=== PATIENT | female | born 1990 | race Two or more races ===

== ENCOUNTER 2024-12-18 19:51 | Emergency (ER) | payer BC, SELFPAY ==
--- NOTE | 2024-12-18 | ECG_ITS ---
Test Reason : LOC Blood Pressure : */* mmHG Vent. Rate : 87 BPM Atrial Rate : 87 BPM P-R Int : 152 ms QRS Dur : 110 ms QT Int : 368 ms P-R-T Axes : 73 38 46 degrees QTcB Int : 442 ms Normal sinus rhythm Incomplete right bundle branch block Borderline ECG No previous ECGs available Referred By: Generic ED Physician Electronically Signed By: SUE CRUZ
--- NOTE | ~2024-12-18 | CT_ITS ---
CLINICAL HISTORY: facial trauma, syncope CT FACIAL BONES WITHOUT CONTRAST COMPARISON: None provided. FINDINGS: CT brain will be reported separately. There is no evidence of an acute fracture or dislocation. Orbits, nasal bones, zygomatic arches, pterygoid plates, maxilla, and mandible are intact. IMPRESSION: 1. No acute disease in the facial bones. This document has been electronically signed by: Rito Posada M.D. on 12/18/2024 23:50:22
--- NOTE | ~2024-12-18 | CT_ITS ---
CLINICAL HISTORY: syncope, facial trauma CT BRAIN WITHOUT CONTRAST COMPARISON: None provided. FINDINGS: CT facial bones will be reported separately. There is no evidence of an acute infarct or intraparenchymal hemorrhage. There is no mass effect, midline shift, or extra-axial blood. The ventricles are normal in size without evidence of hydrocephalus. The bone windows are unremarkable. IMPRESSION: 1. No acute disease in the brain. This document has been electronically signed by: Rito Posada M.D. on 12/18/2024 23:46:27
[2024-12-18 19:55] VITALS: BP 112/65; PULSE 96; RESP 16; TEMP 36.2; O2SAT 100; BMI 19.1
[2024-12-18 20:22] LABS: MANUAL DIFF FLAG NO
[2024-12-18 20:24] VITALS: BP 108/81; PULSE 88; RESP 17; TEMP 36.4; O2SAT 100
[2024-12-18 20:30] LABS: Hematocrit 38.7 % (37.0-47.0); Hemoglobin 13.2 g/dl (12.0-16.0); Imm Gran Abs Auto 0.04 X10*3/uL (0.00-0.03); Imm Gran Pct Auto 0.4 % (0.0-0.4); Lymphocytes Absolute Auto 2.0 X10*3/uL (1.2-4.9); Mean Corpuscular HGB Conc 34.1 g/dl (31.0-35.0); Mean Corpuscular Hemoglobin 27.4 pg (27.0-33.0); Mean Corpuscular Volume 80.3 fL (80.0-98.0); NRBC Abs Auto 0.000 X10*3/uL (0.0-0.012); NRBC Pct Auto 0.0 /100WBC (0.0-0.2); Platelet Count 285 X10*3/uL (160-400); Red Blood Count 4.82 X10*6/uL (4.20-5.50); White Blood Count 11.4 X10*3/uL (4.8-10.8)
[2024-12-18 20:38] LABS: INTERNATIONAL NORM RATIO 1.0 (0.9-1.1); Prothrombin Time 11.7 SEC (10.9-12.4)
[2024-12-18 20:39] LABS: Alanine Aminotransferase 35 U/L (0-31); Albumin Level 4.8 g/dL (3.5-5.0); Alkaline Phosphatase 90 U/L (39-117); Anion Gap 11 (12-20); Aspartate Amino Transferase 36 U/L (5-31); Blood Urea Nitrogen 11 mg/dL (9-16); Calcium 9.5 mg/dL (8.4-10.2); Carbon Dioxide 25 mmol/L (22-29); Chloride 106 mmol/L (96-108); Creatinine Clr Calc Pharmacy 88.9; Estimated Glomerular Filt Rate > 60; Lipase 28 U/L (8-78); Potassium 4.2 mmol/L (3.3-5.1); Sodium 138 mmol/L (135-145); Total Protein 8.1 g/dL (6.5-8.0)
[2024-12-18 20:48] LABS: Troponin-I High Sensitivity < 2.7 ng/L (<3.5-17.0)
[2024-12-18 20:56] VITALS: BP 117/73; PULSE 82
[2024-12-18 20:57] VITALS: BP 109/70; PULSE 88
[2024-12-18 20:58] VITALS: BP 115/70; PULSE 92
--- NOTE | 2024-12-18 21:27 | ED_ITS ---
[facility] - Fall General Chief Complaint: Fall Stated Complaint: fainted/ foaming of the mouth / LOC 10 mins Time Seen by Provider: 12/18/24 21:06 Source: patient and family Limitations: no limitations History of Present Illness ED Provider: Dr. Aylin Bose [facility] Narrative: 44-year-old female with a history of mild intermittent asthma,, anxiety, hypoglycemic episodes presenting after a syncopal episode that occurred at home immediately prior to arrival. Patient reports she was out on her balcony vaping nicotine and came inside the house, passing out. Event was witnessed by her who is now at bedside. reports that she was shaking with all of her limbs and foaming at the mouth. She also had a bloody nose which has since stopped bleeding. Reports she hit her face on the ground. Was out for about 10 minutes. Patient is currently conscious alert and oriented, able to provide a full history. Reports that she has a history of low blood sugar and had not had much to eat today. Blood sugar for on arrival to the ED was 120. Denies stimulant use, illicit substance use. By his all of her vape supplies at the package store. Last use of alcohol was yesterday. She does not have a history of alcohol withdrawal. Had been feeling relatively well prior to this. Does admit to some anxiety and depression that is poorly controlled. No SI. Related Data Previous Rx's ?Medication ?Instructions ?Recorded methocarbamol 500 mg tablet 1,000 mg (2 x 500 mg) PO Q ID #20 12/19/24 tabs ondansetron 4 mg disintegrating 4 mg PO Q8H PRN nausea and 12/19/24 tablet vomiting #10 tabs Allergies Allergy/AdvReac Type Severity Reaction Status Date / Time Penicillins Allergy Unknown Unknown Verified 12/18/24 20:01 Review of Systems 2 Review of Systems: As per HPI, full review of systems performed and negative but for the above mentioned pertinent positives and negatives. [facility] Social History Social History Smoked in Last 30 Days: Yes Use of substances other than those prescribed or required for medical reasons: No Advance Directives: No Advance Directives Information Provided: No Patient : No Physical Exam 2 Exam: Exam: GENERAL: Uncomfortable-Appearing, conversant, mild distress due to pain. SKIN: Normal skin color for ethnicity, warm, dry, intact, no rashes noted. HEENT: Normocephalic, atraumatic, no stridor, airway patent, no raccoon's eyes, no Champagne sign, dentition intact, EOMI, tenderness along the chin and nasal bone, dried blood in bilateral nares, no step-offs. NECK: Soft, supple, full ROM, midline structures nontender, no step-offs, no deformities, no lymphadenopathy. CHEST: Heart regular rate and rhythm, no murmurs, symmetric chest rise and fall, no seatbelt sign, crepitus. PULMONARY: Clear to auscultation bilaterally, no labored breathing, no wheezes/rhales/rhonchi. ABDOMINAL: Soft, nondistended, nontender, quiet bowel sounds in all quadrants. : Deferred. MUSCULOSKELETAL: Normal tone, full range of motion, no deformities, no contusions. NEURO: Alert and oriented x3, CN II through XII intact, equal strength and sensation bilateral upper and lower extremities, no focal neurologic deficits. PSYCHIATRIC: Flat affect, fluid speech, poor eye contact and appropriate demeanor. Vital Signs: Vital Signs: Last Vital Signs Temp 97.5 F 12/18/24 20:24 Pulse 92 12/18/24 20:58 Resp 17 12/18/24 20:24 BP 115/70 12/18/24 20:58 Pulse Ox 100 12/18/24 20:24 O2 Del Method Room Air 12/18/24 20:24 BMI result Body Mass Index 19.1 Medications Administered Discontinued Medications Generic Name Dose Route Start Last Admin Trade Name Freq PRN Reason Stop Dose Admin Acetaminophen 975 mg 12/18/24 21:25 12/18/24 22:09 Acetaminophen 325 Mg Tablet PO 12/18/24 21:26 975 mg ONCE ONE Administration Medical Decision Making Medical Decision Making MDM Narrative: Patient presents today with chief complaint of seizure activity. Differential diagnosis includes breakthrough seizure, medication noncompliance, intracranial pathology such as hemorrhage or embolism, infectious process such as meningitis, stimulant use or drug toxicity, hyperthyroidism, electrolyte abnormality, nonepileptic seizure activity (psychogenic seizure activity), among many others. Broad-based workup initiated to evaluate for emergent pathology. 9:39 PM 12/18/2024 (Dr. Aylin Bose, D.O.) Patient has facial trauma so we will evaluate with a head CT and facial bone CT. She does not have midline neck pain, using [place] C-spine rule we will hold off on C-spine imaging at this time. Blood work so far reassuring. Patient remains hemodynamically stable, able to tolerate oral intake. Encouraged eating some protein and drinking some fluids. Awaiting CT results and final disposition. 12:07 AM 12/19/2024 (Dr. Aylin Bose, D.O.) CT negative for acute process. Blood work is also reassuring. No significant abnormalities aside from slight dehydration with hyaline casts in her urine. Discussed importance of fluids, eating regular meals and follow up with primary care to discuss this syncopal episode. Very highly doubt seizure activity based on her blood work and physical exam today. She has no history of seizure disorder and takes no medications. Reports problems with low blood sugar and near-syncope in the past. She has been worked up by her primary care and has even seen an artificial fly tier about it. She understands and agrees with plan for discharge home. Discharged in stable condition. Differential Diagnosis Differential Diagnoses: The differential diagnosis associated with the presentation includes (as above) Admission/Observation Consideration of admission/observation: Escalation of care including admission/observation considered Lab Data MDM Lab Attestation statement: I reviewed the patient's lab results. 12/18/24 20:17 12/18/24 20:17 Labs: Lab Results 12/18/24 12/18/24 Range/Units 20:17 21:28 WBC 11.4 H (4.8-10.8) X10*3/uL RBC 4.82 (4.20-5.50) X10*6/uL Hgb 13.2 (12.0-16.0) g/dl Hct 38.7 (37.0-47.0) % MCV 80.3 (80.0-98.0) fL MCH 27.4 (27.0-33.0) pg MCHC 34.1 (31.0-35.0) g/dl RDW 13.5 (11.0-16.0) % Plt Count 285 (160-400) X10*3/uL MPV 10.4 (9.4-12.3) fL Immature Gran % (Auto) 0.4 (0.0-0.4) % Neut % (Auto) 70.8 (45-73) % Lymph % (Auto) 17.7 L (20-40) % Glades % (Auto) 6.8 (2-11) % Eos % (Auto) 3.8 (0-4) % Baso % (Auto) 0.5 (0-2) % Lymph # (Auto) 2.0 (1.2-4.9) X10*3/uL Glades # (Auto) 0.8 (0.1-1.2) X10*3/uL Eos # (Auto) 0.4 (0.0-0.4) X10*3/uL Baso # (Auto) 0.1 (0.0-0.2) X10*3/uL Abs Immat Gran (auto) 0.04 H (0.00-0.03) X10*3/uL Absolute Neuts (auto) 8.1 (2.0-8.3) x10*3/uL Absolute Nucleated RBC 0.000 (0.0-0.012) X10*3/uL Nucleated RBC % (auto) 0.0 (0.0-0.2) /100WBC PT 11.7 (10.9-12.4) SEC INR 1.0 (0.9-1.1) Sodium 138 (135-145) mmol/L Potassium 4.2 (3.3-5.1) mmol/L Chloride 106 (96-108) mmol/L Carbon Dioxide 25 (22-29) mmol/L Anion Gap 11 L (12-20) BUN 11 (9-16) mg/dL Creatinine 0.72 (0.5-1.4) mg/dL Estim Creat Clear Calc 88.9 Estimated GFR > 60 Random Glucose 165 H (60-115) mg/dL Calcium 9.5 (8.4-10.2) mg/dL Total Bilirubin 0.8 (0.0-1.0) mg/dL Direct Bilirubin 0.2 (0.0-0.5) mg/dL AST 36 H (5-31) U/L ALT 35 H (0-31) U/L Alkaline Phosphatase 90 (39-117) U/L Troponin I High Sens < 2.7 (<3.5-17.0) ng/L Total Protein 8.1 H (6.5-8.0) g/dL Albumin 4.8 (3.5-5.0) g/dL Lipase 28 (8-78) U/L Urine Color Yellow Urine Appearance Clear Urine pH 5.0 (5.0-9.0) Ur Specific [place] >= 1.030 H (1.005-1.025) Urine Protein 30 (1+) H (Neg-Trace) mg/dL Urine Glucose (UA) Negative (Negative) mg/dL Urine Ketones Trace (Negative) mg/dL Urine Blood Negative (Negative) Urine Nitrite Negative (Negative) Ur Leukocyte Esterase Negative (Negative) Urine RBC 0-2 (0-2) /HPF Urine WBC 6-10 H (0-5) /HPF Ur Squamous Epith Cells 6-10 (0-2) /HPF Urine Bacteria Trace (None Seen) Hyaline Casts 3-5 (0-2) /LPF Urine Opiates Screen Not Detected (Not Detect) Ur Buprenorphine Scrn Not Detected (Not Detect) ng/mL Ur Oxycodone Screen Not Detected (Not Detect) ng/mL Urine Methadone Screen Not Detected (Not Detect) ng/mL Urine Fentanyl Screen Not Detected (Not Detect) Ur Barbiturates Screen Not Detected (Not Detect) Ur Phencyclidine Scrn Not Detected (Not Detect) Ur Amphetamines Screen Not Detected (Not Detect) U Benzodiazepines Scrn Not Detected (Not Detect) Urine Cocaine Screen Not Detected (Not Detect) U Marijuana (THC) Screen Not Detected (Not Detect) Ethyl Alcohol < 10 mg/dL Independent Interpretation I performed an independent interpretation of an: EKG Interpretation: My independent interpretation of the ECG reveals normal sinus rhythm with rate of 87, normal axis, QRS 110, nonspecific interventricular conduction delay, no ST elevations or depressions to suggest ischemic changes, no previous for comparison Radiology Impression Discussion of test interpretation with radiology: I have reviewed the radiologist's reading. Independent Historian Clinical information obtained from an independent historian. History obtained from or confirmed by: Spouse Chronic Conditions Patient?s care impacted by: Other (hypoglycemic episodes) Discharge Plan Discharge Clinical Impression: Syncope, Contusion of face Patient Disposition: Home, Self-Care Instructions: Syncope (ED), Facial Contusion (ED) Additional Instructions: There are many reasons that could have contributed to your passing out tonight. One of them may be related to your food intake. Try to eat regular meals frequently and drink plenty of water. Follow-up with your primary care doctor regarding your episodes of passing out. If you pass out again, you should come back to the hospital. Other reasons to return to the hospital include: Fevers greater than 100?, severe headaches, inability to tolerate food or drink, numbness/tingling/weakness of 1 side of your body, any new symptom that concerns you. Try to avoid using nicotine in the next several days as this can also contribute to irregular heartbeats and passing out. Call 911 with any medical emergency. Be careful while using methocarbamol for muscle spasms as this can make you drowsy. Only take this if you are going to lay down and rest. Use ondansetron for nausea. Otherwise, use Tylenol and Motrin for pain. Prescriptions: New methocarbamol 500 mg tablet 1,000 mg PO QID Qty: 20 0RF ondansetron 4 mg tablet,disintegrating 4 mg PO Q8H PRN (Reason: nausea and vomiting) Qty: 10 0RF Print Language: Vietnamese
--- NOTE | 2024-12-18 21:31 | PC.NURSE ---
Patient alert and oriented x4, VSS. Patient c/o 4/10 pain in her chin, nose, and head s/p witnessed fall at home with + LOC, + head strike with nose bleed, foaming at the mouth, and trembling after smoking cigarettes/vaping. Patient reports history of hypoglycemia with body trembling . BGL 165 on arrival to ED. Orthostatic VS completed and found to be negative. Patient was seen by ED provider, plan for CT of cervical spine, head and brain, OK for patient to have chilango ruth and sandwich prior to CT. Patient given chilango ruth with sandwich. Call arias in patient's reach, patient's is at bedside.
--- OUTSIDE RECORDS SUMMARY | 2024-12-18 21:38 | XMS_ITS | Clinical Summary ---
Author Organization [facility] [address] [place] [address] [address] [place] [address] Phone Care Team Providers Care Hoop Riveter Name Role Phone Prasanth Mendoza MD Primary Care Pr ovider Allergies Active Allergy Reactions Criticality Noted Date Comments Penicillins 12/12/2022 Medications polyethylene glycol (MIRALAX) 17 gram packet Take 8.5 g by mouth daily as needed for Constipation for up to 90 days. 3 Active fluticasone (VERAMYST) 27.5 mcg/actuation nasal spray Administer 2 sprays into each nostril 1 (one) time each day. 10 g 5 08/19/19 26 Active fexofenadine (JALYN) 180 mg tablet Take 1 tablet (180 mg total) by mouth 1 (one) time each day. 90 tablet 5 Active montelukast (SINGULAIR) 10 mg tablet Take 1 tablet (10 mg total) by mouth at bedtime. 90 tablet 1 5 Active albuterol HFA (PROAIR HFA ; PROVENTIL HFA ; VENTOLIN HFA) 90 mcg/actuation inhalerIndicati ons:Wheezing Inhale 2 puffs by mouth every 4 (four) hours if needed for wheezing or shortness of breath (EMERGENCY USE ONLY). 6.7 g 5 Active Active Problems Problem Noted Date Diagnosed Date Chronic rhinitis 07/15/2023 Hyperlipidemia 12/13/2022 Anxiety and depression 12/12/2022 Immunizations Name Administration Dates Next Due Influenza Quadravalent, MDCK , 0.5ml, preservative free (Flucelvax) 6mo and older 12/12/2022,04/13/2021 Surgical History Surgery Date Site/Laterality Comments OTHER SURGICAL HISTORY PROCEDURE: DENIES PREVIOUS SURGERY Medical History Medical History Date Comments HLD (hyperlipidemia) DX:HLD (hyp erlipidemia) Family History Medical History Relation Name Comments Alzheimer's disease Maternal Grandmother Schizophrenia Maternal Grandmother Hypertension Mother Breast cancer Other maternal cousin Diabetes Paternal Grandfather Colon cancer Neg Hx Ovarian cancer Neg Hx Relation Name Status Comments Father Alive Maternal Grandfather Maternal Grandmother Alive Mother Alive Other maternal cousin Alive unsure age ( 50s) Paternal Grandfather Social History Tobacco Use Types Packs/Day Years Used Date Smoking Tobacco: Former Cigarettes Q uit: 12/30/2022 Smokeless Tobacco: Current Alcohol Use Standard Drinks/Week Comments Yes 0 (1 standard drink = 0.6 oz pur e alcohol) Comments Unknown Sex and Gender Information Value Date Recorded Sex Assigned at Not on file Legal Sex Female 9:09 PM EST Gender Identity Not on file Sexual Orientation Not on file Obstetrics History Last Filed Vital Signs Vital Sign Reading Time Taken Comments Blood Pressure 100/80 08/18/2024 11:17 AM EDT Pulse 89 08/18/2024 11:17 AM EDT Temperature 36.7 C (98.1 F) 08/18/2024 11:17 AM EDT Respiratory Rate 18 08/18/2024 11:17 AM EDT Oxygen Saturation 96% 08/18/2024 11:17 AM EDT Inhaled Oxygen Concentration - - Weight 54.9 kg (121 lb) 08/18/2024 11:17 AM EDT Height 165.1 cm (5' 5 ) 08/18/2024 11:17 AM EDT Body Mass Index 20.14 08/18/2024 11:17 AM EDT Plan of Treatment Upcoming Encounters Date Type Department Care Team (Late st Contact Info) Description 03/18/2025 8:00 AM EST Office Visit Adult Medicine [address] [id number] Prasanth Mendozae, MD [address] [place] [address] Health Maintenance Due Date Last Done Comments DTaP,Tdap,and Td Vaccines (1 - Tdap) 06/20/2007 Hepatitis B Vaccines (1 of 3 - 19+ 3-dose series) 06/20/2007 HIV Screening 04/26/2023 Hepatitis C Screening 04/26/2023 Social Influencers of Health Screening 04/26/2023 Depression Screening 04/01/2024 COVID-19 Vaccine (2 - 2024-2 6 season) 2024 04/13/2021 Influenza Vaccine (#1) 2024 , 04/13/2021 Cervical Cancer Screening: HPV 01/17/2028 01/16/2023 Cholesterol Screening (Lipid Panel) 06/17/2028 06/18/2023 HIB Vaccines Aged Out No longer eligi ble based on patient's age to complete this topic HPV Vaccines Aged Out No longer eligi ble based on patient's age to complete this topic Hepatitis A Vaccines Aged Out No long er eligible based on patient's age to complete this topic IPV Vaccines Aged Out No longer eligi ble based on patient's age to complete this topic MMR Vaccines Aged Out No longer eligi ble based on patient's age to complete this topic Meningococcal ACWY Vaccine Aged Out N o longer eligible based on patient's age to complete this topic Meningococcal B Vaccine Aged Out No l onger eligible based on patient's age to complete this topic Pneumococcal Vaccine: Pediatrics (0 to 5 Years) and At-Risk Patients (6 to 49 Years) Aged Out No longer eligible b ased on patient's age to complete this topic RSV Immunization Patients Under 20 months Aged Out No longer eligible b ased on patient's age to complete this topic Varicella Vaccines Aged Out No longer eligible based on patient's age to complete this topic Procedures Procedure Name Priority Date/Time Associated Diagnosis Comments LIPID PANEL Routine 06/18/2023 HM HPV Routine 01/16/2023 from Last 3 Months or Most Recently Relevant to Health Maintenance Results * (ABNORMAL) Lipid panel (06/18/2023) LDL/HDL Ratio 3 0 - 4 Triglycerides 78 0 - 150 mg/dL Cholesterol 208(A) 0 - 200 mg/dL HDL 67 >=40 mg/dL LDL Cholesterol 126(A) 0 - 100 mg/dL Blood Venous blood specimen / Unknown Historical Provider LAB BLOOD ORDERABLES Jihan l Result * Cervical Cancer Screening: HPV (01/16/2023) Cervical Cancer Screening: HPV negative, abstracted Historical Provider HEALTH MAINTENANCE Final Result from Last 3 Months or Most Recently Relevant to Health Maintenance Insurance [id number] Care Teams Hoop Riveter Relationship Specialty Start Date End Date Prasanth Mendoza MD [address] [place] [phone] PCP - General 07/20/22
--- OUTSIDE RECORDS SUMMARY | 2024-12-18 21:38 | XMS_ITS | Clinical Summary ---
Author Organization [facility] Address [address] [place] [id number] Phone Care Team Providers Care Outbound Sales Professional Name Role Phone Pcp, Unknown Primary Care Provider Unavailabl e Medications No known medications Active Problems No known active problems Social History Tobacco Use Types Packs/Day Years Used Date Smoking Tobacco: Never Assessed Education Answer Date Recorded Are you interested in more education? Not on shameka e 07/28/2022 Are you concerned about learning? Not on file 07/28/2022 No 07/28/2022 No 07/28/2022 Digital Access Answer Date Recorded No 08/28/2022 No 08/28/2022 Reliable internet access at home? Not on file 08/28/2022 Device with a working camera? Not on file Comments Unknown Sex and Gender Information Value Date Recorded Sex Assigned at Not on file Legal Sex Female 4:04 AM EDT Gender Identity Not on file Sexual Orientation Not on file Last Filed Vital Signs Vital Sign Reading Time Taken Comments Blood Pressure 142/85 01/26/2022 4:11 AM EDT Pulse 97 01/26/2022 4:11 AM EDT Temperature 36.8 C (98.2 F) 01/26/2022 4:11 AM EDT Respiratory Rate 18 01/26/2022 4:11 AM EDT Oxygen Saturation 100% 01/26/2022 4:11 AM EDT Inhaled Oxygen Concentration - - Weight 53.5 kg (118 lb) 01/26/2022 4:11 AM EDT Height 162.6 cm (5' 4 ) 01/26/2022 4:11 AM EDT Body Mass Index 20.25 01/26/2022 4:11 AM EDT Plan of Treatment Not on file Medical Devices Not on file Insurance [employer] Care Teams Outbound Sales Professional Relationship Specialty Start Date End Date Pcp, Unknown PCP - General 01/26/22 Additional Source Comments The information contained in this document represents components of the legal health record. It is not the complete legal health record.[facility]
[2024-12-18 21:52] LABS: Appearance Urine Clear; Glucose Urine UA Negative (Negative); PH 5.0 (5.0-9.0); Specific Gravity - Urine >= 1.030 (1.005-1.025); UMIC TRIGGER UACC YES
[2024-12-18 21:56] LABS: UACC Culture Trigger YES
[2024-12-18 22:03] LABS: Cannabinoid Screen Urine Not Detected (Not Detect)
--- NOTE | 2024-12-18 22:11 | PC.NURSE ---
Patient mediated per MAR.
--- NOTE | 2024-12-19 00:34 | PC.NURSE ---
pt unhappy with her wait time in the hallway. no room monitoring needed. charge auditor aware.
[2024-12-19 01:31] VITALS: BP 97/55; PULSE 80; RESP 14; TEMP 36.4; O2SAT 96
[2024-12-19 01:32] VITALS: BP 97/55; PULSE 80; RESP 14; TEMP 36.4; O2SAT 96
== END 2024-12-19 01:54 | disposition home or self-care (01) ==
PROVIDERS: Emergency Provider Emergency Medicine; PCP Family Medicine
DX: S00.33XA Contusion of nose, initial encounter (principal); R51.9 Headache, unspecified; I45.10 Unspecified right bundle-branch block; R55 Syncope and collapse; F41.9 Anxiety disorder, unspecified; F33.1 Major depressive disorder, recurrent, moderate; X58.XXXA Exposure to other specified factors, initial encounter; W18.30XA Fall on same level, unspecified, initial encounter; Y93.9 Activity, unspecified; Y92.9 Unspecified place or not applicable; Y99.8 Other external cause status; Z79.899 Other long term (current) drug therapy; Z51.81 Encounter for therapeutic drug level monitoring
CPT/HCPCS: 36415; 70450; 70486; 80053; 80307; 81001; 82248; 83690; 84484; 85025; 85610; 87086; 93005; 99284; 99285

== ENCOUNTER → 2024-12-18 20:13 | Outpatient (BNV) | payer BC, SELFPAY | PROVIDERS: Emergency Provider Emergency Medicine; PCP Family Medicine; Visit Provider Internal Medicine | DX: I45.10 Unspecified right bundle-branch block (principal) | CPT/HCPCS: 93010 ==

== ENCOUNTER → 2024-12-18 21:23 | Outpatient (BNV) | payer BC, SELFPAY | PROVIDERS: Emergency Provider Emergency Medicine; PCP Family Medicine; Visit Provider Radiology Diagnostic Radiology | DX: R55 Syncope and collapse (principal); S00.83XA Contusion of other part of head, initial encounter; W19.XXXA Unspecified fall, initial encounter | CPT/HCPCS: 70450; 70486 ==